=== PATIENT | male | born 1955 | race Caucasian/White ===

== ENCOUNTER 2019-05-17 11:55 | Emergency (ER) | payer OTHER, SELFPAY ==
[2019-05-17 12:35] VITALS: BP 139/75; PULSE 91; RESP 24; TEMP 36.5; O2SAT 99
[2019-05-17 12:42] LABS: Glucose Point of Care 121 (65-105)
--- NOTE | 2019-05-17 12:49 | ECG_ITS ---
Measurements Intervals [place] Rate: 85 P: 54 IA: 160 QRS: 40 QRSD: 97 T: 52 QT: 379 QTc: 451 Interpretive Statements SINUS RHYTHM POSSIBLE LEFT ATRIAL ENLARGEMENT BORDERLINE ECG Electronically Signed On 05-17-2019 13:35:35 SENIOR ACCOUNT CLERK by Jt Reardon D.O.
--- NOTE | 2019-05-17 22:17 | PC.NURSE ---
05/17/19 AT 1305 PT TRANSFERRED TO [facility] ER IN [place], EMS HERE FOR PT TRANSFER AND COPIES CHART GIVEN TO EMS, IV SALINE LOCK IN PLACE TO LAC AT DISCHARGE AND PATENT. PT CONTINUES TO COMPLAIN OF CHEST PAIN AT 3/10 WITH HEAVINESS OF BREATHING PT OUT OF EXPRESS CARE WITH EMS WITH OUT NEW SYMPTOMS OR COMPLAINTS OF.
--- NOTE | 2019-05-17 22:24 | PC.NURSE ---
05/17/19 AT 1250 PT GIVEN ONE 325 MG ASPIRIN PO PER VERBAL ORDER OF DOMINGUEZ ORTIZ NP.
--- NOTE | 2019-06-07 10:22 | ED.URI ---
HPI - URI/Sore Throat General Chief Complaint: Upper Respiratory Infection Stated Complaint: Cold/Flu Time Seen by Provider: 05/17/19 13:00 Source: patient and family Mode of arrival: ambulatory Limitations: no limitations History of Present Illness HPI Narrative: 63-year-old male presents for evaluation of symptoms that developed at 4:00 this morning. He reports he is woken up out of sleep with nausea, vomiting, diarrhea, mid back pain, central chest pain and shortness of breath. Patient was in the bathroom and sitting on the toilet when he became lightheaded and fell on the floor. His heard a loud sound and found him laying on the floor around 11:30 AM today. She reports he appeared to be unconscious but then woke up and was very groggy, disoriented. Minutes later, he appeared to be normal mental status. He is still complaining of central chest heaviness and shortness of breath. Rates chest pain a 3 out of 10. Denies any prior cardiovascular or lung history. He reports dad with an [place] at age 65. Denies any recent illness or sick contacts. Related Data Allergies Allergy/AdvReac Type Severity Reaction Status Date / Time No Known Allergies Allergy Unverified 12/25/18 08:23 Review of Systems Review of Systems: Narrative: CONSTITUTIONAL: Denies fever, chills, weight loss, or sweats. EYES: Denies visual changes, redness, or discharge. ENT: Denies rhinorrhea, congestion, sore throat, or otalgia. CARDIOVASCULAR: Denies palpitations, edema. Reports chest pain, chest heaviness, shortness of breath RESPIRATORY: Denies cough. Reports dyspnea GASTROINTESTINAL: Denies abdominal pain. Reports nausea, vomiting, diarrhea. GENITOURINARY: Denies dysuria, hematuria, urinary frequency, malordous urine SKIN: Denies rash or itching. MUSCULOSKELETAL: Denies joint pain, myalgia, swelling. Reports mid back pain NEUROLOGIC: Denies headache, numbness, or weakness. All systems reviewed & are unremarkable except as noted in HPI and below PMFSH Comments At the time of my signature, I agree with nursing past medical, surgical, social and family history. Patient's father from [place] at age 65. Exam Narrative: Exam Narrative: GENERAL: No distress, well appearing, well nourished, alert and calm HEAD: Normocephalic, atraumatic. EYES: Pupils equal, round reactive to light. Extraocular movements intact. Conjunctivae without redness or drainage. EARS: Tympanic membranes without erythema. TM landmarks intact with good light reflex. Ear canals without discharge. NOSE: Nares patent. MOUTH: Mucous membranes moist. No lesions. No cyanosis. THROAT: Oropharynx without signs erythema, exudates or lesions. Tonsils not enlarged. NECK: Supple. No lymphadenopathy. RESPIRATORY: Airway patent. Chest clear to auscultation bilaterally. Breath sounds equal bilaterally. No retractions. CARDIOVASCULAR: Regular rate and rhythm. No murmurs, rubs, gallops, or clicks. Capillary refill <2 seconds. GASTROINTESTINAL: Soft, nontender, non-distended. Bowel sounds normoactive. No masses. No organomegaly. No CVA tenderness MUSCULOSKELETAL: Range of motion grossly normal in all four extremities. Strength grossly normal in all four extremities. No edema. No swelling SKIN: Color normal. Warm and dry. Superficial abrasion noted to central forehead NEURO: Alert and oriented. Motor intact in all extremities. Muscle tone normal. Cranial nerves II through XII grossly intact Course Course Emergency Course: Patient immediatly placed in room and EKG performed EKG abnormal with nonspecific ST and T wave abnormality 325 mg aspirin given Vital Signs Vital signs: Vital Signs Temperature 97.7 F 05/17/19 12:35 Pulse Rate 91 05/17/19 12:35 Respiratory Rate 24 H 05/17/19 12:35 Blood Pressure 139/75 05/17/19 12:35 Pulse Oximetry 99 05/17/19 12:35 Temperature 97.7 F 05/17/19 12:35 Pulse Rate 91 05/17/19 12:35 Respiratory Rate 24 H 05/17/19
== END 2019-05-17 13:05 | disposition short-term general hospital (02) ==
PROVIDERS: Emergency Provider Nurse Practitioner
DX: R07.9 Chest pain, unspecified (principal); Z82.49 Family history of ischemic heart disease and other diseases of the circulatory system
CPT/HCPCS: 82948; 93005; 99215; A9270; G0463

== ENCOUNTER → 2022-10-02 14:44 | Outpatient (CLI) | payer MEDICARE, SELFPAY ==
--- NOTE | ~2022-10-02 | CT_ITS ---
EXAMINATION: CT sinus wo con DATE: 10/02/2022 15:13 INDICATION: Sinus drainage. Recurrent sinusitis. TECHNIQUE: Computed tomography (CT) of the paranasal sinuses was performed without contrast. Iterativ e reconstruction technique was employed. Exam dose: 310.97 mGy-cm total exam DLP. COMPARISON: None FINDINGS: There is rightward deviation of the nasal septum. There is asymmetric soft tissue prominenc e of the left middle and inferior nasal turbinates. There is mild soft tissue thickening at the maxillary ostium and infundibulum bilaterally but the ost iomeatal units are patent. Normal development and aeration of the paranasal sinuses, ethmoid air cells, maxillary and sphenoid s inuses. Normal development and aeration of the mastoid air cells bilaterally. IMPRESSION: Mild soft tissue thickening of the maxillary ostium and fibula bilaterally but the ostio meatal units are patent Rightward deviation of nasal septum Normally developed and aerated paranasal sinuses and mastoid air cells Reviewed, dictated and finalized at [facility]. Reviewed, dictated and finalized at location [] IMPRESSION: Mild soft tissue thickening of the maxillary ostium and fibula consuelo aterally but the ostiomeatal units are patent Rightward deviation of nasal septum Normally developed and aerated paranasal sinuses and mastoid air cells
== END ==
PROVIDERS: PCP Internal Medicine Infectious Disease; Referring Provider Allergy & Immunology; Visit Provider Internal Medicine Infectious Disease
DX: J32.9 Chronic sinusitis, unspecified (principal); J34.2 Deviated nasal septum
CPT/HCPCS: 70486